=== PATIENT | female | born 1950 | race Caucasian/White ===

== ENCOUNTER 2018-01-02 09:30 | Outpatient (RCR) | payer MEDICARE, OTHER, SELFPAY ==
--- NOTE | 2017-12-05 09:30 | PTTR_ITS ---
DATE: December 05, 2017 SUBJECTIVE: Payton reports that she feels she has an increased awareness of her pelvic floor. She has been compliant with her HEP. She has been completing more isolation contractions for improved awareness than the cocontraction exercises for she feels that she loses the pelvic floor contraction when she engages the larger muscle groups. She notes that she still feels the pressure of the prolapse. She does note that it depends on her level of activity on how much the pressure is there. Is trying to be more aware of avoiding bearing down with squatting activity. OBJECTIVE: Therapeutic procedures ([id number]). * X HEP review: Emphasized focus on pelvic floor isolation with functional activities and her other PT exercises prescribed for her low back. * X Provided skilled instruction in proper exercise performance: with use of EMG biofeedback for neuromuscular education to the pelvic floor via internal vaginal sensor independently placed via patient. Good resting tone at 2.9 mV- 3.1 mV. Average contraction to 10 mV with average hold of 6 seconds. Completed 10 isolation contractions followed by cocontraction stabilization via hip adduction with ball squeeze with increased activation via EMG to 13 mV. Abduction with light resistance via red band with EMG at 10 mV or greater and bridging with EMG at 19 mV or greater. * X Provided skilled manual cues to facilitate proper muscle recruitment and/ or movement pattern: Emphasized importance of the compliancy with her HEP. Feel that her increased awareness is a plus to her prognosis. Will reassess in 4 weeks with continued progression of stabilization within tolerance. Will contact us in the meantime if she has any questions. Direct treatment time: 30 minutes Total treatment time: 30 minutes
--- NOTE | 2018-01-02 09:30 | PTTR_ITS ---
DATE: January 02, 2018 SUBJECTIVE: Payton reports that she has maintained her compliancy with her HEP however is not seeing any improvement in the level of pressure or heaviness due to the prolapse. She declines any pain. She is not limited in any activity because of it however questions if it will ever go away or improve to the point where she will not feel it. She also continues to core stabilization and proximal hip stability. She notes that she has had a difficult time in getting a regular exercise regimen due to her low back and occasional feeling that she has to bear down to complete. She has discontinued any of the exercises that she feels she is doing this. Declines any leakage. OBJECTIVE: Therapeutic procedures ([id number]). * X HEP review: Emphasized continued stabilization of the core musculature and proximal hip stabilizers in conjunction with her pelvic floor isolation. * X Provided skilled instruction in proper exercise performance: promoting use of EMG biofeedback with use of internal sensor independently placed via patient. Average resting tone 2.3 mV. Average contraction to 10 mV with average hold up to 8 seconds. Improved endurance however strength of contraction has remained the same as last reassessment 4 weeks ago. * X Provided skilled manual cues to facilitate proper muscle recruitment and/ or movement pattern: Promoting core engagement and activation of her pelvic floor throughout all functional tasks especially with lifting tasks. At this time no follow up is scheduled. She will continue with her HEP. She will contact our office with any questions or if needs to reappoint for further assessment. If no contact made over the course of the next month will be considered discharged from our care at this time. Patient is also in agreement with this plan. If further pressure develops or if pain arises recommended return to physician. Direct treatment time: 30 minutes Total treatment time: 30 minutes
== END 2018-01-03 23:59 | disposition home or self-care (01) ==
LOC: PT 09:30
PROVIDERS: PCP Family Medicine; Referring Provider Family Medicine; Visit Provider Family Medicine
DX: N81.2 Incomplete uterovaginal prolapse (principal)
CPT/HCPCS: 97110

== ENCOUNTER 2018-06-02 10:01 | Outpatient (CLI) | payer MEDICARE, SELFPAY ==
[2018-06-02 15:00] LABS: TSH (W/Ref FT4) 1.57 uIU/mL (0.358-3.74)
== END 2018-06-02 10:21 ==
PROVIDERS: PCP Family Medicine; Visit Provider Family Medicine
DX: G47.00 Insomnia, unspecified (principal); E03.9 Hypothyroidism, unspecified
CPT/HCPCS: 36415; 84443

== ENCOUNTER 2018-09-09 11:47 | Outpatient (CLI) | payer MEDICARE, SELFPAY ==
[2018-09-09 14:16] LABS: ALT 30 U/L (12-78); AST 20 U/L (15-37); Albumin 3.9 g/dL (3.4-5.0); Alkaline Phosphatase 75 U/L (46-116); Anion Gap 8.3 mmol/L (3-11); BUN 21 mg/dL (7-18); Bilirubin, Total 0.5 mg/dL (0.2-1.0); CO2 27.7 mmol/L (21.0-32.0); CREATININE 0.91 mg/dL (0.55-1.02); Chloride 105 mmol/L (98-107); Cholesterol 253 mg/dL (50-200); Glucose 98 mg/dL (70-100); HDL Cholesterol 95 mg/dL (40-60); LDL CHOLESTEROL 145 mg/dL (<100); Potassium 4.7 mmol/L (3.5-5.1); Sodium 141 mmol/L (136-145); Triglyceride 71 mg/dL (30-150)
== END 2018-09-09 12:07 ==
PROVIDERS: PCP Family Medicine; Visit Provider Family Medicine
DX: E78.00 Pure hypercholesterolemia, unspecified (principal)
CPT/HCPCS: 36415; 80053; 80061; 83721

== ENCOUNTER 2019-01-07 09:51 | Outpatient (CLI) | payer MEDICARE, SELFPAY ==
[2019-01-08 10:04] LABS: Alpha 1 Antitrypsin,Serum 77 mg/dL (90-200)
[2019-01-09 16:59] LABS: Alpha-1-Antitrypsin 89 mg/dL (100 - 190); Alpha-1-Antitrypsin Phenotype MZ bands
== END 2019-01-07 10:11 ==
PROVIDERS: PCP Family Medicine; Visit Provider Family Medicine
DX: R06.2 Wheezing (principal)
CPT/HCPCS: 36415; 82103; 82104

== ENCOUNTER 2019-09-22 20:59 | Outpatient (REF) | payer MEDICARE, SELFPAY ==
[2019-09-22 20:06] LABS: TSH (W/Ref FT4) 0.43 uIU/mL (0.36-3.74)
== END 2019-09-22 21:19 ==
LOC: LBN 20:59
PROVIDERS: PCP Family Medicine; Visit Provider Family Medicine
DX: E03.9 Hypothyroidism, unspecified (principal); Q89.2 Congenital malformations of other endocrine glands
CPT/HCPCS: 84443

== ENCOUNTER 2019-10-27 08:23 | Outpatient (CLI) | payer MEDICARE, SELFPAY ==
[2019-10-29 20:35] LABS: COVID-19 RT-PCR UVMMC Result Negative (Negative)
== END 2019-10-27 08:43 ==
PROVIDERS: PCP Family Medicine; Visit Provider Family Medicine
DX: Z03.818 Encounter for observation for suspected exposure to other biological agents ruled out (principal)
CPT/HCPCS: U0003

== ENCOUNTER 2019-10-30 04:02 | Outpatient (CLI) | payer MEDICARE, SELFPAY ==
--- NOTE | 2019-11-09 09:01 | W.PFT ---
Date of service: 10/30/19 Time of Service: 01:02 Pulmonary Function Test Result Interpretation Spirometry: Spirometry shows no evidence of obstructive airways disease, no bronchodilator response Lung Volumes: Lung volumes show no evidence of restriction Diffusion Capacity: Diffusion capacity is normal Airway Pressure: Airways resistance is normal Impression Normal pulmonary function study, clinical correlation recommended. When the study was compared to previous one from 09/10/2017, there is a slight improvement in FVC of 80 cc, FEV1 has remained stable. Clinical Correlation therefore is recommended.
== END 2019-10-30 04:22 ==
PROVIDERS: PCP Family Medicine; Visit Provider Internal Medicine
DX: E88.01 Alpha-1-antitrypsin deficiency (principal); R06.09 Other forms of dyspnea
CPT/HCPCS: 94060; 94726; 94729

== ENCOUNTER 2019-11-04 02:14 | Outpatient (CLI) | payer MEDICARE, SELFPAY ==
--- NOTE | 2019-11-04 14:45 | DI.MAMMO_ITS ---
EXAM: MG MAMMO SCREENING CLINICAL HISTORY: screening, Z12.39 TECHNIQUE: Bilateral full field digital CC and MLO mammographic images were obtained with 3D tomosyn thesis and utilizing computer aided detection (CAD). COMPARISON: Available for comparison. FINDINGS: Masses/Architectural Distortion: None seen. Microcalcifications: No suspicious pleomorphic-type are seen. Skin Thickening/Nipple Retraction: None. IMPRESSION: 1. No significant interval change with no specific features of malignancy noted. 2. Unless there is more urgent need, screening mammography is recommended, as per [place] [employer] guidelines. BI-RADS Category 1 - Negative Breast Density - Category B - Scattered areas of fibroglandular density A negative radiographic report should not delay biopsy if a dominant or clinically suspicious mass is present. Up to ten percent of cancers are not identified on mammography. A negative report may reinforce clinical impression. Adenosis and dense breasts may obscure an underlying neoplasm. False positive reports average 6 to 10%. Patient will receive a letter notifying them of these results.
== END 2019-11-04 02:34 ==
PROVIDERS: PCP Family Medicine; Visit Provider Family Medicine
DX: Z12.31 Encounter for screening mammogram for malignant neoplasm of breast (principal)
CPT/HCPCS: 77063; 77067

== ENCOUNTER 2020-09-20 03:19 | Outpatient (CLI) | payer MEDICARE, SELFPAY ==
[2020-09-20 11:45] LABS: ALT 24 U/L (14-59); AST 16 U/L (15-37); Albumin 3.8 g/dL (3.4-5.0); Alkaline Phosphatase 71 U/L (46-116); Anion Gap 10.6 mmol/L (3-11); BUN 19 mg/dL (7-18); Bilirubin, Total 0.5 mg/dL (0.2-1.0); CO2 26.4 mmol/L (21.0-32.0); CREATININE 0.9 mg/dL (0.55-1.02); Calcium 8.7 mg/dL (8.5-10.1); Calculated LDL 149 mg/dL (<100); Chloride 107 mmol/L (98-107); Cholesterol 267 mg/dL (<200); Glucose 93 mg/dL (74-106); HDL Cholesterol 104 mg/dL (40-60); Potassium 4.3 mmol/L (3.5-5.1); Sodium 144 mmol/L (136-145); TSH (W/Ref FT4) 1.12 uIU/mL (0.36-3.74); Total Protein 6.8 g/dL (6.4-8.2); Triglyceride 72 mg/dL (<150)
== END 2020-09-20 03:20 | disposition home or self-care (01) ==
PROVIDERS: PCP Family Medicine; Visit Provider Family Medicine
DX: E78.00 Pure hypercholesterolemia, unspecified (principal); E03.9 Hypothyroidism, unspecified
CPT/HCPCS: 36415; 80053; 80061; 84443

== ENCOUNTER 2021-03-17 10:44 | Outpatient (REF) | payer MEDICARE, SELFPAY ==
[2021-03-17 11:32] LABS: Abs Immature Grans 0.02 10^3/uL (0.0-0.06); Absolute Basophil Count 0.04 10^3/uL (0.0-0.2); Absolute Lymphocyte Count 1.16 10^3/uL (1.2-3.4); Absolute Monocyte Count 0.42 10^3/uL (0.1-0.8); Absolute Neutrophil Count 3.21 10^3/uL (1.2-6.7); Basophils % 0.8; HCT 42.5 % (36.0-46.0); Immature Grans % 0.4; MCH 29.9 pg (27.0-33.0); MCHC 32.9 % (32.0-36.0); MCV 90.8 fL (80-95); MPV 9.9 fL (8.0-11.0); Monocytes % 8.3; Neutrophils % 63.5; Nucleated RBC 0 %; Platelet Count 255 10^3/uL (130-400); RBC 4.68 10^6/uL (3.93-5.22); RDW 12.6 % (11.7-14.6); RDW-SD 42.1 fL; WBC 5.05 10^3/uL (4.4-10.8)
[2021-03-20 08:09] LABS: IgE 19 IU/mL (<158)
[2021-03-20 10:57] LABS: Alpha 1 Antitrypsin,Serum 91 mg/dL (90-200)
== END 2021-03-17 10:45 | disposition home or self-care (01) ==
LOC: NCHCN 10:44
PROVIDERS: PCP Family Medicine; Visit Provider Student in an Organized Health Care Education/Training Program
DX: E88.01 Alpha-1-antitrypsin deficiency (principal); J45.909 Unspecified asthma, uncomplicated
CPT/HCPCS: 82103; 82785; 85025

== ENCOUNTER 2021-05-31 00:49 | Outpatient (CLI) | payer MEDICARE, SELFPAY ==
--- NOTE | 2021-05-31 07:35 | DI.US_ITS ---
APPROVED REPORT EXAM: Comprehensive 2D, Doppler, and color-flow Echocardiogram Patient Location: Out-Patient Butt Maker: Evy Phillips RDCS (AE) Indications: SOB Other Information Study Quality: Good Conclusion Left Ventricle : The left ventricle is normal size. The left ventricular systolic function is normal. The left ventricular ejection fraction is within the normal range. There is normal left ventricular wall thickness. There is normal LV segmental wall motion. The left ventricular diastolic function is normal. LVEF is 60%. Right Ventricle : The right ventricle is normal size. The right ventricular systolic function is norm al. The RVSP is 25 mmHg. Aortic Valve : The aortic valve is normal in structure. Aortic valve is trileaflet. Mild aortic regur gitation. There is no aortic valvular stenosis. Mitral Valve : Mild mitral annular calcification. Mild to moderate mitral regurgitation. No evidence of mitral valve stenosis. Great Vessels : The aortic root is normal in size. The ascending aorta is mildly dilated. IVC is norm al in size and collapses >50% with inspiration. See remainder of stay for further details. Wall motion Left Ventricle The left ventricle is normal size. The left ventricular systolic function is normal. The left ventric ular ejection fraction is within the normal range. There is normal left ventricular wall thickness. T here is normal LV segmental wall motion. The left ventricular diastolic function is normal. There is no ventricular septal defect visualized. LVEF is 60%. Right Ventricle The right ventricle is normal size. The right ventricular systolic function is normal. The RVSP is 25 mmHg. Atria The left atrium size is normal. The right atrium size is normal. The interatrial septum is intact wit h no evidence for an atrial septal defect. Aortic Valve The aortic valve is normal in structure. Aortic valve is trileaflet. There is no aortic valvular sten osis. Mild aortic regurgitation. Mitral Valve Mild mitral annular calcification. No evidence of mitral valve stenosis. Mild to moderate mitral regu rgitation. Tricuspid Valve The tricuspid valve is normal in structure. There is no tricuspid valve stenosis. Trace tricuspid reg urgitation. Pulmonic Valve The pulmonary valve is normal in structure. There is no pulmonic valvular stenosis. There is no pulmo frannie valvular regurgitation. Great Vessels The aortic root is normal in size. The ascending aorta is mildly dilated. IVC is normal in size and c ollapses >50% with inspiration. Pericardium There is no pericardial effusion. 2D Dimensions IVSD d PLAX 0.77 cm F: 0.6-1.0 LV Vol A2C d MOD 94.5 mL LVPW d PLAX 0.81 cm F: 0.6 - 1.0 LV Vol A4C d MOD 83.8 mL LVID d PLAX 4.27 cm F: 3.8 - 5.2 LA vol/ BSA A2C s A-L 27.5 mL/m2 LVDs 2.85 cm F: 2.2 - 3.5 LA vol/ BSA A4C s A-L 20.5 mL/m2 Ao Root d 3.05 cm F: 2.7 - 3.3 LA Vol/ BSA Biplane s A-L 24.1 mL/m2 RA Area A4C 13.19 cm2 LA Area A4C s MOD 14.58 cm2 RA Vol/ BSA A4C s A-L 18.9 mL/m2 LA Area A2C s MOD 16.64 cm2 Ao Asc Diam d 3.35 cm F: 2.3 - 3.1 LV EF A4C MOD 61.4 % LV EF Teichholz 61.8 % LV EF A2C MOD 60.5 % LVEF (Carbone's) 61.14 % F: 54 - 74 LV EF Biplane MOD 61.1 % LV Volume 69.62 mL F: 46 - 106 SV 54.76 mL LV Volume Index 38.67 mL/m2 F: 29 - 61 SV Index 30.38 mL/m2 LV Vol Biplane MOD 89.6 mL FS 32.95 % M-Mode TAPSE 2.21 cm (M/F) >1.7 LV Diastology MV E' medial 0.098 (>0.07 m/s) E/A Ratio 0.8 LV E/e MED 6.70 (<14) MV E Vmax 0.66 (0.4-1.3 m/s) MV E' lateral 0.136 (>0.1 m/s) MV A Vmax 0.80 (0.4-1.3 m/s) LV E/e LAT 4.80 (<14) MV E/A Ratio 0.79 MV E/E' medial 6.71 MV E/E' lateral 4.83 Aortic Valve LVOT Area 3.14 cm2 AoV Area Vmax 2.48 cm2 LVOT Vmax 1.00 m/s AoV Area/ BSA (Vmax) 1.38 cm2/m2 LVOT Mean Aj. 0.61 m/s KAYLYNN Mean Aj. 2.37 cm2 LVOT Peak Grad 4.0 mmHg KAYLYNN Mean Aj. Index 1.31 cm2/m2 LVOT Mean Grad 1.8 mmHg AR DT 1753 msec LVOT VTI 0.201 m AR PHT 508 msec LVOT Diam s 2.00 cm AoV Vmax 1.27 m/s Velocity Ratio 0.78 AoV Mean Aj. 0.81 m/s AoV Peak Grad 6.4 mmHg LVOT SV 63.19 mL AoV Mean Grad 3.0 mmHg AoV VTI 0.234 m AoV Area VTI 2.70 cm2 AoV Area/ BSA (VTI) 1.50 cm/m2 Mitral Valve MV DT 272 (160-240 msec) MR Vmax 4.72 m/s MV PHT 79 msec MR VTI 1.576 m MV Area PHT 2.79 cm2 MR Peak Grad 89.0 mmHg MV VTI 0.213 m MR Mean Grad 58.3 mmHg MV Area VTI 2.97 (4.0-6.0 cm2) MR PISA Radius 0.43 cm MR EROA 0.08 cm2 MR Aliasing Velocity 0.35 m/s MR PISA 1.14 cm2 Pulmonary Valve PV Vmax 1.04 (0.5-1.5 m/s) RVOT Peak Gr. 1.87 mmHg PV Peak Grad 4.3 mmHg RVOT Mean Gr. 0.90 mmHg PV Mean Grad 2.0 mmHg RVOT VTI 0.131 m PV VTI 0.175 m RVOT Vmax 0.68 m/s Tricuspid Valve TR Peak Grad 22.0 mmHg TR Vmax 2.35 m/s RA Pressure 3.00 mmHg RVSP (TR) 25.0 mmHg
== END 2021-05-31 01:09 ==
PROVIDERS: PCP Family Medicine; Visit Provider Family Medicine
DX: R06.02 Shortness of breath (principal); I08.0 Rheumatic disorders of both mitral and aortic valves; I77.810 Thoracic aortic ectasia
CPT/HCPCS: 93306

== ENCOUNTER 2021-07-14 02:03 | Outpatient (CLI) | payer MEDICARE, SELFPAY ==
--- NOTE | 2021-07-14 07:30 | DI.DEXA_ITS ---
Exam(s) XR DEXA BONE DENSITY W/WO NIYA EXAM: XR DEXA BONE DENSITY W/WO NIYA CLINICAL HISTORY: osteoporosis,M81.0 TECHNIQUE: Routine DEXA evaluation of the lumbar spine, hip, or forearm. COMPARISON: Prior DEXA scan 2009 FINDINGS: Performed on a HoloCryoocyte unit. Lateral image: No compression fracture evident. Lumbar Spine total T-score: -0.8. Prior 2010 reading was -1.1 Hip total T-score:-0.5. Prior 2010 reading was -0.7. Independent reading at the level of the femoral neck yields at T-score of -1.4.This is osteopenia ran ge. Forearm total T-score: -0.9 IMPRESSION: Bone mineral density measures in the mild osteopenia range. Fracture risk is moderate. Note: Any spine fracture indicates 5x risk for subsequent spine fracture and 2x risk for subsequent h ip fracture. World Health Organization criteria for BMD interpretation classify patients: Normal...... T- Score at or above -1.0 Osteopenic... T- Score between -1.0 and -2.5 Osteoporosis... T-Score at or below -2.5
== END 2021-07-14 02:23 ==
PROVIDERS: PCP Family Medicine; Visit Provider Family Medicine
DX: M85.89 Other specified disorders of bone density and structure, multiple sites (principal); Z13.820 Encounter for screening for osteoporosis
CPT/HCPCS: 77080

== ENCOUNTER 2021-08-18 09:50 | Outpatient (CLI) | payer MEDICARE, SELFPAY ==
--- OUTSIDE RECORDS SUMMARY | 2021-08-18 10:00 | XMS_ITS ---
:1950 Author Care Team Providers Name Role Phone JACEK YUNI Primary Care Provider [phone] [facility] Primary Care Provider [phone] Allergies Code Code System Name Reaction Severity Status Onset NKDA ? Medications Name Status Start Date Stop Date ? ? albuterol sulfate 90 mcg/actuation breath activated powder inhal er Completed ? 02/12/2019 Inhale 2 puffs 4 times a day by inhalation route as needed. albuterol sulfate HFA 90 mcg/actuation Active ? Not available aerosol inhaler aloe vera Active ? Not available 1,000 ML daily PRN azithromycin 250 mg tablet Completed ? 02/12 TAKE 2 TABLETS (500 MG) BY ORAL ROUTE O NCE DAILY FOR 1 DAY THEN 1 TABLET (250 MG) BY ORAL ROUTE ONCE DAILY FOR 4 DAYS budesonide-formoterol HFA 80 mcg-4.5 mcg/actuation aerosol inhal er Active ? Not available Inhale 2 puffs twice a day by inhalation route. levothyroxine 75 mcg tablet Active ? Not available pantoprazole 40 mg tablet,delayed Completed ? 03/19/2019 release prednisone 20 mg tablet Completed ? 02/13/20 19 Take 1 tablet every day by oral route. Shingrix (PF) 50 mcg/0.5 mL Active ? Not available intramuscular suspension, kit Symbicort 160 mcg-4.5 mcg/actuation HFA aerosol inhaler Active ? Not available Inhale 2 puffs twice a day by inhalation route. Problems Name Status Onset Date Source ? Herpes Zoster Active 02/12/2019 ? Hypothyroidism Active 02/12/2019 ? Hypercholesterolemia Active 02/12/2019 ? 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 Insomnia Active 02/12/2019 ? Sensorineural Hearing Loss, Bilateral Active 02/12/2019 ? Gastroesophageal Reflux Disease Active 02/12/2019 ? Atrophy of Vagina Active 02/12/2019 ? Degeneration of Intervertebral Disc Active 02/12/2019 ? Neck Pain Active 02/12/2019 ? Osteopenia Active 02/12/2019 ? Congenital Diverticulosis Active 02/12/2019 ? Aberrant Thyroid Gland Active 02/12/2019 ? Dyspnea Active 02/12/2019 ? Wheezing Active 02/12/2019 ? Cough Active 02/12/2019 ? Ganglion Cyst of Left Knee Active 02/12/2019 ? Procedures None recorded. Results Lab Results None recorded. Past Encounters None recorded. Social History Tobacco Smoking Status Never Smoker Vaccine List Vaccine Type influenza, injectable, quadrivalent 03/17/2019 pneumococcal conjugate PCV 13 09/09/2017 pneumococcal polysaccharide PPV23 07/14/2013 Tdap 05/31/2011 Plan of Care Reminders Provider Appointments None ? ? recorded. Lab None ? ? recorded. Referral None ? ? recorded. Procedures None ? ? recorded. Surgeries None ? ? recorded. Imaging None ? ? recorded. Vitals 03/19/2019 12:30PM Office 30 Height Weight BMI Blood Pressure 162.56 cm 76.2 kg 28.8 kg/m2 118/64 mm[Hg] 02/12/2019 10:30AM New Patient 43 Height Weight BMI Blood Pressure 162.56 cm 75.4 kg 28.5 kg/m2 122/80 mm[Hg]
[2021-08-18 11:17] LABS: Anion Gap 9.8 mmol/L (3-11); BUN 17 mg/dL (7-18); CO2 26.2 mmol/L (21.0-32.0); Calcium 8.8 mg/dL (8.5-10.1); Chloride 106 mmol/L (98-107); Estimated GFR 54.35 (mL/min/1.73m2); Glucose 95 mg/dL (74-106); Sodium 142 mmol/L (136-145); TSH (W/Ref FT4) 0.52 uIU/mL (0.36-3.74); Vitamin B12 339 pg/mL (193-986)
== END 2021-08-18 09:51 | disposition home or self-care (01) ==
LOC: LBO 09:59
PROVIDERS: PCP Family Medicine; Visit Provider Family Medicine
DX: E03.9 Hypothyroidism, unspecified (principal); E88.01 Alpha-1-antitrypsin deficiency; K21.9 Gastro-esophageal reflux disease without esophagitis; Q89.2 Congenital malformations of other endocrine glands; U07.1 COVID-19
CPT/HCPCS: 36415; 80048; 82607; 84443

== ENCOUNTER → 2021-11-03 01:10 | Outpatient (CLI) | payer MEDICARE, SELFPAY ==
--- NOTE | 2021-11-03 08:00 | DI.RAD_ITS ---
Exam(s) XR LUMBAR SPINE COMPLETE EXAM: XR LUMBAR SPINE COMPLETE CLINICAL HISTORY: LOW BACK PAIN, M51.36. TECHNIQUE: 2D digital imaging was performed. COMPARISON: CR XR DEXA BONE DENSITY W/WO NIYA from 07/14/2021 FINDINGS: Five views, There is transitional lumbar anatomy with sacralization of the L5 segment. There is a rudimentary L5 -S1 disc space. The other disc spaces exhibit normal height and there is no listhesis. No pars defe cts. There are significant degenerative changes at L4-5 level. Moderate degenerative changes at L3- 4 level. Sacroiliac joints appear unremarkable. No scoliosis. No osseous lesions. IMPRESSION: No disc space narrowing although there is sacralization of the L5 segment. This puts additional stre ss upon the L4-5 disc space. Degenerative facet arthropathy at L4-5 level noted. No listhesis. DATA REPOSITORY: RADIATION DOSE DELIVERED:
--- NOTE | 2021-11-03 08:09 | DI.RAD_ITS ---
Exam(s) XR HIP PELVIS ADULT BL EXAM: XR HIP PELVIS ADULT BL CLINICAL HISTORY: BILAT HIP PAIN, M25.559. TECHNIQUE: 2D digital imaging was performed. COMPARISON: CR LUMBAR SPINE COMPLETE from 01/20/2016 FINDINGS: No evidence of pelvic nor hip fracture. Sacralized L5 segment noted. No obvious degenerative changes in the hips. Bone density normal. No osseous lesions. No evidence of avascular necrosis. IMPRESSION: No significant radiograph findings in the hips. DATA REPOSITORY: RADIATION DOSE DELIVERED:
== END ==
PROVIDERS: PCP Family Medicine; Visit Provider Family Medicine
DX: M47.816 Spondylosis without myelopathy or radiculopathy, lumbar region; M51.36 Other intervertebral disc degeneration, lumbar region; M25.551 Pain in right hip; M25.552 Pain in left hip; M43.27 Fusion of spine, lumbosacral region
CPT/HCPCS: 73521; 72110

== ENCOUNTER 2021-12-26 08:49 | Outpatient (CLI) | payer MEDICARE, SELFPAY | END 2021-12-26 08:50 | disposition home or self-care (01) | LOC: LOS 08:49 | PROVIDERS: PCP Family Medicine; Visit Provider Family Medicine | DX: E03.9 Hypothyroidism, unspecified (principal); E78.00 Pure hypercholesterolemia, unspecified | CPT/HCPCS: 36415; 84443 ==

== ENCOUNTER → 2022-01-18 01:42 | Outpatient (CLI) | payer MEDICARE, SELFPAY ==
--- NOTE | 2022-01-18 09:03 | DI.MAMMO_ITS ---
Exam(s) MAMMO SCREENING EXAM: MAMMO SCREENING CLINICAL HISTORY: screening,z12.39 TECHNIQUE: Bilateral full field digital CC and MLO mammographic images were obtained with 3D tomosyn thesis and utilizing computer aided detection (CAD). COMPARISON: Available for comparison. FINDINGS: Masses/Architectural Distortion: None seen. Microcalcifications: No suspicious pleomorphic-type are seen. Skin Thickening/Nipple Retraction: None. IMPRESSION: 1. No significant interval change with no specific features of malignancy noted. 2. Unless there is more urgent need, screening mammography is recommended, as per [employer] guidelines. BI-RADS Category 1 - Negative Breast Density - Category B - Scattered areas of fibroglandular density Breast density category C or D implies that the patient has dense breast tissue. Dense breast tissue is very common and is not abnormal but dense breast tissue can make it harder to find cancer on a ma mmogram. Also, dense breast tissue may increase their breast cancer risk. This information about the result of the mammogram report was provided to the patient to raise their awareness. Use this report when you speak with the patient about their risks for breast cancer, which includes their family hist ory. At that time, you may recommend for more screening tests (Ultrasound or MRI) as they might be us eful based on their risk. A negative radiographic report should not delay biopsy if a dominant or clinically suspicious mass is present. Up to ten percent of cancers are not identified on mammography. A negative report may reinforce clinical impression. Adenosis and dense breasts may obscure an underlying neoplasm. False positive reports average 6 to 10%. Patient will receive a letter notifying them of these results.
== END ==
PROVIDERS: PCP Family Medicine; Visit Provider Family Medicine
DX: Z12.31 Encounter for screening mammogram for malignant neoplasm of breast (principal)
CPT/HCPCS: 77063; 77067

== ENCOUNTER 2022-09-10 11:07 | Outpatient (REF) | payer MEDICARE, SELFPAY ==
[2022-09-10 12:12] LABS: Bilirubin Small (Negative); Blood Negative (Negative); Clarity Cloudy (Clear); Glucose Negative (Negative); Ketones Negative (Negative); Leukocyte Esterase Small (Negative); Nitrite Negative (Negative); Specific Gravity >= 1.030 (1.005-1.025); Urobilinogen 0.2 mg/dL (Up to 0.2); pH 5.5 (5-8)
[2022-09-10 12:23] LABS: Bacteria Many HPF (Negative); Crystals Moderate Amorphous HPF (Negative); Epithelial Cells Rare HPF (Negative); RBC 0-2 HPF (0-2)
[2022-09-10 12:24] LABS: C & S Indicated? Yes; Casts Negative LPF (Negative); Mucus Negative (Negative)
[2022-09-10 12:25] LABS: WBC 0-2 HPF (0-5)
== END 2022-09-10 11:08 | disposition home or self-care (01) ==
LOC: LBN 11:07
PROVIDERS: PCP Family Medicine; Visit Provider Physician Assistant
DX: R39.89 Other symptoms and signs involving the genitourinary system (principal); R82.998 Other abnormal findings in urine
CPT/HCPCS: 36415; 80053; 83690; 87077; 81003; 81015; 85025; 87086; 87186

== ENCOUNTER 2022-09-10 15:32 | Outpatient (CLI) | payer MEDICARE, SELFPAY ==
--- NOTE | 2022-09-10 11:00 | DI.US_ITS ---
Exam(s) US ABDOMEN LIMITED EXAM: US ABDOMEN LIMITED CLINICAL HISTORY: epigastric and RUQ pain,r10.13 TECHNIQUE: Ultrasound abdomen performed using standard protocol. COMPARISON: CT CHEST FOR PULMONARY EMBOLUS from 09/06/2017 FINDINGS: LIVER: Normal size and echogenicity. No focal liver lesions are seen.. GALLBLADDER: 1.4 centimeter stone lodged within the gallbladder neck. Additional 1.2 centimeter ston e also seen near the neck. Gallbladder wall thickening. Small amount of pericholecystic fluid. MUNOZ'S SIGN: Positive BILIARY SYSTEM: No intrahepatic or extrahepatic biliary ductal dilation. No common duct stones ident ified. KIDNEYS: Normal size. No evidence of renal calculi. No evidence of hydronephrosis. No renal mass or cyst identified. PANCREAS: Normal where visualized. ABDOMINAL AORTA AND IVC: Visualized portions normal caliber. ASCITES: None seen. IMPRESSION: Findings consistent with acute cholecystitis. A stone is lodged in the gallbladder neck. Findings discussed with Yesica Gamboa, referring provider. DATA REPOSITORY:
== END 2022-09-10 15:52 ==
LOC: DI 15:43
PROVIDERS: PCP Family Medicine; Visit Provider Physician Assistant
DX: R10.13 Epigastric pain (principal); K81.0 Acute cholecystitis
CPT/HCPCS: 36415; 80053; 83690; 99203; 76705; 85025

== ENCOUNTER 2022-09-10 15:48 | Outpatient (CLI) | payer MEDICARE, SELFPAY ==
[2022-09-10 15:52] LABS: Abs Immature Grans 0.05 10^3/uL (0.0-0.06); Absolute Basophil Count 0.03 10^3/uL (0.0-0.2); Absolute Eosinophil Count 0.04 10^3/uL (0.0-0.7); Absolute Lymphocyte Count 1.49 10^3/uL (1.2-3.4); Absolute Monocyte Count 0.51 10^3/uL (0.1-0.8); Basophils % 0.2; Eosinophils % 0.3; HCT 43.2 % (36.0-46.0); HGB 14.5 g/dL (11.2-15.7); Immature Grans % 0.4; Lymphocytes % 11.4; MCH 29.9 pg (27.0-33.0); MCHC 33.6 % (32.0-36.0); MCV 89 fL (80-95); MPV 8.9 fL (8.0-11.0); Monocytes % 3.9; Neutrophils % 83.8; Platelet Count 323 10^3/uL (130-400); RBC 4.85 10^6/uL (3.93-5.22); RDW 12.1 % (11.7-14.6); RDW-SD 39.9 fL; WBC 13.03 10^3/uL (4.4-10.8)
[2022-09-10 15:54] LABS: Absolute Neutrophil Count 10.92 10^3/uL (1.2-6.7)
[2022-09-10 16:06] LABS: ALT 52 U/L (14-59); AST 49 U/L (15-37); Albumin 3.8 g/dL (3.4-5.0); Alkaline Phosphatase 122 U/L (46-116); Anion Gap 8.9 mmol/L (3-11); BUN 14 mg/dL (7-18); Bilirubin, Total 0.8 mg/dL (0.2-1.0); CO2 27.1 mmol/L (21.0-32.0); CREATININE 0.9 mg/dL (0.55-1.02); Calcium 9.4 mg/dL (8.5-10.1); Chloride 105 mmol/L (98-107); Estimated GFR 67.08 (mL/min/1.73m2); Glucose 127 mg/dL (74-106); Lipase 23 U/L (16-77); Sodium 141 mmol/L (136-145); Total Protein 7.9 g/dL (6.4-8.2)
== END 2022-09-10 15:49 | disposition home or self-care (01) ==
LOC: LBO 15:49
PROVIDERS: PCP Family Medicine; Visit Provider Physician Assistant
DX: R10.13 Epigastric pain (principal); K80.50 Calculus of bile duct without cholangitis or cholecystitis without obstruction
CPT/HCPCS: 36415; 80053; 83690; 99203; 85025

== ENCOUNTER → 2022-09-12 09:20 | Outpatient (BNVA) | payer MEDICARE, SELFPAY | PROVIDERS: PCP Family Medicine; Referring Provider Family Medicine; Visit Provider Surgery | DX: K50.80 Crohn's disease of both small and large intestine without complications (principal) | CPT/HCPCS: 36415; 99213 ==

== ENCOUNTER 2022-09-12 09:28 | Outpatient (REF) | payer MEDICARE, SELFPAY ==
[2022-09-12 09:51] LABS: Abs Immature Grans 0.04 10^3/uL (0.0-0.06); Absolute Basophil Count 0.05 10^3/uL (0.0-0.2); Absolute Eosinophil Count 0.37 10^3/uL (0.0-0.7); Absolute Lymphocyte Count 1.38 10^3/uL (1.2-3.4); Absolute Monocyte Count 0.57 10^3/uL (0.1-0.8); Absolute Neutrophil Count 8.83 10^3/uL (1.2-6.7); Basophils % 0.4; Eosinophils % 3.3; HGB 13.2 g/dL (11.2-15.7); Immature Grans % 0.4; Lymphocytes % 12.3; MCHC 33.8 % (32.0-36.0); MCV 89 fL (80-95); MPV 9.2 fL (8.0-11.0); Monocytes % 5.1; Neutrophils % 78.5; Platelet Count 299 10^3/uL (130-400); RDW 12.2 % (11.7-14.6); WBC 11.25 10^3/uL (4.4-10.8)
[2022-09-12 10:11] LABS: ALT 53 U/L (14-59); AST 38 U/L (15-37); Albumin 3.4 g/dL (3.4-5.0); Alkaline Phosphatase 120 U/L (46-116); Anion Gap 7.2 mmol/L (3-11); BUN 13 mg/dL (7-18); Bilirubin, Total 0.8 mg/dL (0.2-1.0); CO2 25.8 mmol/L (21.0-32.0); CREATININE 0.9 mg/dL (0.55-1.02); Calcium 9.1 mg/dL (8.5-10.1); Chloride 104 mmol/L (98-107); Estimated GFR 67.08 (mL/min/1.73m2); Glucose 116 mg/dL (74-106); Potassium 3.7 mmol/L (3.5-5.1); Sodium 137 mmol/L (136-145); Total Protein 7.5 g/dL (6.4-8.2)
== END 2022-09-12 09:29 | disposition home or self-care (01) ==
LOC: LBN 09:28
PROVIDERS: Surgery; PCP Family Medicine; Visit Provider Surgery
DX: K80.50 Calculus of bile duct without cholangitis or cholecystitis without obstruction (principal); E03.9 Hypothyroidism, unspecified
CPT/HCPCS: 80053; 85025

== ENCOUNTER 2022-09-19 08:04 | Day surgery (SDC) | payer MEDICARE, SELFPAY ==
[2022-09-19] VITALS (13 sets, daily range): BP systolic 83–134; BP diastolic 37–82; PULSE 64–94; RESP 14–21; TEMP 36.2–36.6; O2SAT 90–97; BMI 27.6
--- NOTE | 2022-09-19 06:36 | PGE_ITS ---
Date of Service Date of service: 09/19/22 Time of Service: 08:45 Assessment and Plan Assessment and plan (1) Biliary colic: Status: Acute Assessment and plan: Payton is here today in same-day surgery to have a laparoscopic cholecystectomy. The patient was seen in same-day surgery. We again reviewed the risks, benefits, complications. Complications include but are not limited to bleeding, infection, injury to stomach, small bowel and large bowel, injury to the pancreas, injury to the common bile duct necessitating drainage and referral to tertiary center for repair, bile leak, adverse reactions to the medications, complications of intubation including a sore throat or injury to the uvula, [place], stroke and even . Questions were entertained and answered to her satisfaction and she wished to proceed. No guarantees were given or implied. Neither Payton or her had any further questions. She seemed to understand the risks and complications of the procedure and wished to proceed. Subjective Subjective Interval history since last seen: Patient is a 72-year-old female who is here today for a laparoscopic cholecystectomy. Payton was seen last week after having right upper quadrant pain which was quite severe. She was noted to have some fluid around her gallbladder a mild while to count and stones in the neck of the gallbladder. Her symptoms then resolved. She did not want to have emergent surgery as it was her anniversary. She has done well over the last week. She says she had a couple of episodes where she had some discomfort but it only lasted like 15-20 minutes. No fevers, no chills, no vomiting, no diarrhea and no nausea. Exam Const General: comfortable and no acute distress Nutritional Appearance: average body habitus Orientation: alert and oriented x3 [facility] Head: normocephalic and atraumatic Resp Effort & Inspection: normal respiratory effort Time Spent with Patient Time Spent with Patient: <25 minutes Time was spent: counseling the patient
--- NOTE | 2022-09-19 06:36 | ANES.PREOP_ITS ---
General Info Date of Service Date Performed: 09/19/22 Height: 5 ft 4 in Weight: 73 kg Body Mass Index (BMI): 27.6 Surgical Procedure: Operation Date: 09/19/22 09:25 Proposed Procedure Side Surgeon p Cholecystectomy Laparoscopic Suzette Louise MD Meds Allergies and Home Medications Allergies Allergy/AdvReac Type Severity Reaction Status Date / Time No Known Drug Allergies Allergy Verified 09/19/22 08:28 Home Medication Medication Instructions Recorded Aloe Vera 1 oz PO DAILY PRN 07/14/13 pantoprazole 40 mg tablet,delayed 40 mg PO DAILY PRN GERD #90 07/18/21 release (Protonix) tab-caps Symbicort 160 mcg-4.5 2 puff inhalation BID #30.6 grams 06/12/22 mcg/actuation HFA aerosol inhaler (budesonide-formoterol) albuterol sulfate 90 mcg/actuation 2 puff inhalation QID PRN 06/12/22 aerosol inhaler (Proventil HFA) bronchospasm #8.5 grams levothyroxine 75 mcg tablet 75 mcg PO DAILY #90 tab-caps 06/12/22 ondansetron HCl 4 mg tablet 4 mg PO Q8H PRN nausea and 09/10/22 vomiting #10 tabs sucralfate 1 gram tablet (Carafate) 1 g PO TID #21 tabs 09/10/22 amoxicillin 500 mg tablet 500 mg PO QID #20 tabs 09/13/22 Current Visit Medications: Current Medications Generic Name Dose Route Start Last Admin Trade Name Freq PRN Reason Stop Dose Admin Ringer's Solution 1,000 mls @ 80 mls/hr 09/19/22 06:00 IV 10/18/22 23:59 INFUSION PHILIP IV Miscellaneous Supplies 1 each 09/19/22 06:00 Iv Access IV 10/18/22 23:59 DIRECTED PHILIP Sodium Chloride 0 ml 09/19/22 06:00 Normal Saline Flush 10 Ml Syr IV 10/18/22 23:59 PRN PRN Sodium Chloride 0 ml 09/19/22 06:00 Normal Saline 10 Ml Vial IJ 10/18/22 23:59 DIRECTED PRN Sterile Water 0 ml 09/19/22 06:00 Water,Injection,Sterile 10 Ml Vial IJ 10/18/22 23:59 DIRECTED PRN PFSH Active Problems Active Problems: Problem Status Onset Code Aberrant thyroid gland 07/25/15 Q89.2 Cough 04/23/17 R05 Cyst of left knee joint 11/01/16 M25.862 DDD (degenerative disc disease), lumbar 06/25/16 M51.36 Disorder of patellofemoral joint M22.2X9 Diverticulosis of colon without diverticulitis K57.30 Gastroesophageal reflux disease 07/08/12 K21.9 Hypercholesterolemia E78.00 Hypothyroidism 07/08/12 E03.9 Insomnia 07/09/12 G47.00 Neck pain 08/03/04 M54.2 Osteopenia 06/05/03 M85.80 Sensorineural hearing loss, bilateral 09/20/14 H90.3 Vaginal vault prolapse 10/29/17 N81.9 Wheezing Polyp of colon 09/19/12 K63.5 Asthma J45.909 Laceration Mqkrv-1-rfwcpjafjft deficiency E88.01 Osteoporosis M81.0 COVID U07.1 Hip pain M25.559 Prolapse of female pelvic organs N81.9 Pessary maintenance Z46.89 Biliary colic K80.50 Medical History Medical History (Updated 09/18/22 @ 11:39 by Cleve Woodson) Abnormal findings on diagnostic imaging of breast (08/15/12) Peripheral neuralgia Shingles (10/30/17) RIGHT SIDE OF FACE Vaginal pessary in situ Surgical History Surgical History section X 2 Colonoscopy - IV Sedation (09/19/12) DR. Mena GAR; 1 HYPERPLASTIC POLYP AND DIVERTICULA History of section History of esophagogastroduodenoscopy PROCEDURES Colonoscopy 2001 showing diverticulitis, EGD 1993 showing reflux disease, barium enema showing diverticulosis Tobacco Smoking/Tobacco Use Status: Never Passive smoking exposure: Yes Second hand exposure: Yes Alcohol Alcohol Intake: current Alcohol intake frequency: a few times a month Alcohol type: wine Substance Use Substance use: Never Substance use type: does not use Vital Signs and Lab Results Vital Signs Most Recent Vital Signs in EMR: Temp Pulse Resp BP Pulse Ox 36.5 C 94 H 20 122/73 96 09/19/22 08:03 09/19/22 08:03 09/19/22 08:03 09/19/22 08:03 09/19/22 08:03 Lab Results Blood Type / Crossmatch: No Data to Display Complete Blood Count: White Blood Count 11.25 10^3/uL (4.4-10.8) H 09/12/22 09:30 Red Blood Count 4.40 10^6/uL (3.93-5.22) 09/12/22 09:30 Hemoglobin 13.2 g/dL (11.2-15.7) 09/12/22 09:30 Hematocrit 39.0 % (36.0-46.0) 09/12/22 09:30 Platelet Count 299 10^3/uL (130-400) 09/12/22 09:30 Complete Metabolic Panel: Sodium 137 mmol/L (136-145) 09/12/22 09:30 Potassium 3.7 mmol/L (3.5-5.1) 09/12/22 09:30 Chloride 104 mmol/L (98-107) 09/12/22 09:30 Carbon Dioxide 25.8 mmol/L (21.0-32.0) 09/12/22 09:30 BUN 13 mg/dL (7-18) 09/12/22 09:30 Creatinine 0.9 mg/dL (0.55-1.02) 09/12/22 09:30 Est GFR (CKD-EPI 2020) 67.08 (mL/min/1.73m2) 09/12/22 09:30 Calcium 9.1 mg/dL (8.5-10.1) 09/12/22 09:30 Albumin 3.4 g/dL (3.4-5.0) 09/12/22 09:30 Glucose 116 mg/dL (74-106) H 09/12/22 09:30 Liver Function Panel: Alanine Aminotransferase (ALT/SGPT) 53 U/L (14-59) 09/12/22 09: 30 Aspartate Amino Transf (AST/SGOT) 38 U/L (15-37) H 09/12/22 09: 30 Coagulation Panel: No Data to Display Cardiac Panel: No Data to Display Arterial Blood Gas: No Data to Display Venous Blood Gas: No Data to Display Pancreas Panel: Lipase 23 U/L (16-77) 09/10/22 15:45 Thyroid Panel: No Data to Display Infectious Disease: No Data to Display Blood Cultures: No Data to Display Toxicology Panel: No Data to Display Imaging and Studies Imaging and Studies Study information below may be from another EMR and interpreted by another provider. Please see original notes in EMR for more complete details. Echocardiogram Summary: 05/27: LVEF 60%, RVfxn normal, mild mod MR, Pulmonary Function Summary: 11/22: normal study. Anesthesia Assessment and Plan Anesthesia History Personal History: No History of Anesthesia Complications Family History: No Family History of Anesthesia Complications Exercise Tolerance Exercise Tolerance: Metabolic Equivalents>4 Cardiac & Pulmonary Exam Cardiac Exam: Normal S1/S2 Heart Sounds Pulmonary Exam: Clear Bilateral Breath Sounds Implantable Cardiac Device Does patient have a Pacemaker or an ICD?: No Airway Exam Known Difficult Airway: No Mallampati Class: 2 Mouth Opening: Normal (> 3cm) Thyromental Distance: Greater than 3 cm Neck Range of Motion: Full ROM Neck Circumference: Normal Teeth Condition: Normal Dentition ASA Classification ASA Score: ASA 2 Emergency Case?: No NPO Status NPO Status: NPO Clears >2 hours, Solids >8 hours Anesthesia Plan Resuscitation Status: Full Code Anesthesia Technique: General Anesthesia Airway Planned: Endotracheal Tube Monitors Used: Standard Monitors Preoperative Comments:: 72 yo female with biliary colic for lap payal. Sig PMHx: asthma (Symbicort, albuterol, has not used prednisone in years), alpha 1 antitrypsin def, hypothyroid (on replacement), GERD (pantoprazole, well controlled), never smoker, occ EtOH.
--- NOTE | 2022-09-19 06:37 | ROE_ITS ---
Date of service: 09/19/22 Time of Service: 10:41 Operative Note Operative Note DATE OF PROCEDURE: 09/19/22 PRE-OP DIAGNOSIS: Biliary colic POST-OP DIAGNOSIS: other (acute on chronic cholecystitis) PROCEDURE: Laparoscoopic Cholecystectomy SURGEON: Suzette Loiuse CABLE TELEVISION PROGRAM DIRECTOR: Julio Cesar Menon ANESTHESIA TYPE: Local By Surgeon and General:No Airway Refer to Anesthesia Record ESTIMATED BLOOD LOSS: 50 PATHOLOGY: other (GAllbladder and stones) COMPLICATIONS: None Patient was transported to: PACU Patient's condition: stable Indications: Payton is here today in same-day surgery to have a laparoscopic cholecystectomy.? The patient was seen in same-day surgery.? We again reviewed the risks, benefits, complications.? Complications include but are not limited to bleeding, infection, injury to stomach, small bowel and large bowel, injury to the pancreas, injury to the common bile duct necessitating drainage and referral to tertiary center for repair, bile leak, adverse reactions to the medications, complications of intubation including a sore throat or injury to the uvula, RI, stroke and even .? Questions were entertained and answered to her satisfaction and she wished to proceed.? No guarantees were given or implied. Findings: thickened Gallbladder wall Multiple cholesterol stones Procedure Description: After informed consent was obtained the patient was brought to the operating room, placed in a supine position and monitors were applied. SCDs were applied to her lower extremities and she was placed under general anesthesia and intubated without difficulty. Her abdomen was then prepped and draped in a gera rile fashion using ChloraPrep. At this point a timeout was done and the patient's name, date of , procedure type, allergies to medications, metal in her body, antibiotic and DVT prophylaxis, and fire risk was assessed. Next 0.25% Bupivocaine was injected just above the umbilicus into the dermis and subcutaneous tissue. A 5 mm incision was made with an 11 blade. The skin next to the incision was grasped with penetrating towel clamps and while pulling up on the skin a 5 mm port was placed under direct visualization and without difficulty. The abdomen was insuflated and then 3 more ports were placed. A 12 mm port was placed in the subxiphoid area and two 5 mm ports were placed in the right upper quadrant. The liver was inspected and looked normal. The patient's bed was then turned to the left and her head was brought up. The gallbladder was grasped at the body. The wall was very thick which made it difficult to grasp. Using a Laparoscopic needle 10 cc of thick bile was removed from the Gallbladder. This allowed me to grasp the Gallblader a bit easier and pushed towards the right shoulder.There was omentum and stomach adhered to the Gallbladder. The omentum and stomach were gently swept away from the Gallbladder wall using a brandon dissector. The neck was grasped and pulled towards the right flank and down allowing me to visualize the lymph node. Using a [place] dissector with cautery the lymph node was gently dissected away from the tissues and the fatty tissue was also dissected away. The cystic duct was identified it was normal in size. The duct was dissected 360 degrees using the [place] dissector in order for me to visualize its entrance into the gallbladder. Liver was noted behind it. There were no other structures right behind. Critical view was achieved. 3 clips were placed one proximal and 2 distal and the cystic duct was cut. The cystic artery was then identified and dissected 360 degrees. It was located just medial to the cystic duct. It was visualized going into the gallbladder. Once dissected 3 more clips were placed one proximal and 2 distal and the artery was cut. Using the hook dissector the gallbladder was then disse cted away from the liver bed and placed into an Endo Catch bag and pulled through the 12 mm port site. The dissection off the liver was difficult as there was no plane between the Gallbladder wall and liver. Unfortunately I ended up getting into the Gallbladder and spilling some bile and some stones. The stones were removed and the bile was suctioned out. The 12 mm port was placed back into the abdomen under direct visualization. The liver bed was inspected, and there was some bleeding. A piece of surgicel was applied to the liver bed. A raytech was placed into the abdomen and over the surgicell. Gentle pressure was applied to the raytech with a blunt instrument. After 60 seconds the surgicel and raytech were removed from the abdoemn. There was no more bleeding noted. The abdomen was then irrigated with 2 liters of normal saline until the effluent was clear. Once all the fluid was suctioned out, the 12 mm and the 2 right upper quadrant ports were removed under direct visualization and no bleeding was noted from the fascia. The abdomen was deflated completely and lastly the umbilical port was removed. The skin was cleaned. The 12 mm incision site fascia was closed with 0- vicryl. The dermis of all 4 incisions were closed with 4-0 Vicryl. The skin was dried and skin affix was applied over the closed incisions. Needle, instrument and sponge counts were correct at the end of the case. At this point the patient was woken up, extubated and taken back to recovery in stable condition. There were no immediate complications.
--- NOTE | 2022-09-19 06:39 | PDOC.DSDIS_ITS ---
Date of service: 09/19/22 Time of Service: 12:53 Discharge Plan Disposition Patient Disposition: Home Condition: Stable Discharge Details Reason For Visit: biliary colic Attending Provider: Suzette Louise Primary Care Provider: Dora Guevara Home Meds and New Rx's Prescriptions: New amoxicillin-pot clavulanate [Augmentin] 500-125 mg tablet 1 tab PO BID Qty: 20 0RF Continued albuterol sulfate [Proventil HFA] 90 mcg/actuation HFA aerosol inhaler 2 puff IH QID PRN (Reason: bronchospasm) Qty: 8.5 4RF levothyroxine 75 mcg tablet 75 mcg PO DAILY Qty: 90 12RF budesonide-formoterol [Symbicort] 160-4.5 mcg/actuation HFA aerosol inhaler 2 puff inhalation BID Qty: 30.6 4RF ondansetron HCl 4 mg tablet 4 mg PO Q8H PRN (Reason: nausea and vomiting) Qty: 10 0RF sucralfate [Carafate] 1 gram tablet 1 g PO TID Qty: 21 0RF ALOE VERA 1,000 ML liquid 1 oz PO DAILY PRN Patient Comments: Takes PRN for acid reflux pantoprazole [Protonix] 40 mg tablet,delayed release (DR/EC) 40 mg PO DAILY PRN (Reason: GERD) Qty: 90 5RF Discontinued amoxicillin 500 mg tablet 500 mg PO QID Qty: 20 0RF Discharge Instructions Instructions: Low Fat Diet (DC), Laparoscopic Cholecystectomy (DC) Additional Instructions: Activity at Home after surgery: 1. Make sure you walk outside at least 4 times per day 2. You should be able to climb a flight of stairs 3. No driving while in pain or taking pain medications 4. No strenuous activity or heavy lifting for 2 weeks (laparoscopic surgery) Diet, Nutrition, & wound healin. Avoid alcohol until after you are recovered from your surgery 2. Make sure to eat plenty of lean protein (meat, fish, eggs, cottage cheese, beans) 3. Eat a variety of fruits and vegetables. Eat plenty of high fiber foods to avoid constipation. 4. Drink plenty of liquids to stay hydrated and avoid constipation Pain Medications: 1. Tylenol 650mg every 6 hours as needed and Ibuprofen 600 mg every 6 hours as needed. You may alternate between the 2 medications every 3 hours 2. If a narcotic has been prescribed take as directed only for breakthr ough pain For Constipation: 1. Take Milk of Magnesia or MiraLax as needed for constipation Other: 1. You may shower daily. Do not scrub the incisions 2. Do not soak the incisions for 1 week 3. You may alternate ice and heat as needed for pain and swelling Wound Care: 1. Keep the incisions clean and dry Please call our office if you develop: 1. Fevers >101.5 2. Nausea or Vomiting 3. Worsening pain 4. Redness and thick discharge from the wounds If after hours please call the Hospital at and ask to speak to the on-call surgeon Referrals: Suzette Louise MD [ [facility] STAFF PHYSICIAN] - 10/02/22 11:30 am Activity:: as above Shower/Bathe:: 24 hours Diet:: low fat Discharge Orders Discharge Orders: Discharge Order (Routine); Ordered 09/19/22 Ordered By: Suzette Louise DS: Diagnosis Discharge Diagnosis (1) Biliary colic: Status: Acute Asessment and Plan: The patient is doing well post-op from their Laparoscopic Colecystectomy surgery.? Patient did have some nausea in PACU. The nausea has now subsided. They are tolerating liquids and a snack. The pt is not having any chest pain or SOB.? Their pain is adequately controlled. They have been able to urinate.? ?HEENT:? no eye pain/drainage/redness/swelling. Mild sore throat ?Cardio- NSR, no chest pain, BP stable- see VS record ?Pulm: no sob or productive cough. No hemoptysis ?Incision- dressing is c/d/i w/ no excessive bleeding or drainage ABDO: soft, ND, appropriately tender to palpation around the incisions ?I discussed with the patient the findings at the time of surgery and the patient?s progress. ?We reviewed expectations at home; what the patient could expect for recovery time, and in the post-operative period.? We discussed the importance of walking to avoid blood clots and pneumonia.? We discussed and reviewed the patient's post-operative wound care and dressing needs.?? We reviewed their [place] pain management plan, Rx called to the pharmacy of their choice.? We reviewed activity and limitations-see discharge instructions. We reviewed warning signs, and when to seek medical attention- see d/c instructions.?? Patient was given a postoperative follow-up appointment. Patient verbalized understanding of their postoperative instructions, how do to take care of themselves and their incision, and the pain management plan. Please see discharge instructions.?
[2022-09-19] MEDS: Lactated Ringers 1,000 ML 80 ML IV (08:35)
[2022-09-19] MEDS: ceFAZolin 2 GM/50 ML BAG IVPB (09:24)
--- NOTE | 2022-09-19 10:10 | GB_PTH ---
PATIENT: Payton Lisa LOC: [facility] U#:[id number] AGE/SX: 72/F ROOM: RE09/19/[address]: Suzette Louise MD : 1950 BED: DIS: 09/19/2022 SPEC #: [id number] RECD: 09/19/22 13:03 STATUS: CE REBárbara #: [id number] MADELYN: 09/19/22 10:[address]: Suzette Louise DEPT: Surgical Specimen RECD BY: Yaneth Pedroza ENTERED: 09/19/22 13:04 SP TYPE: GB OTHR DR: Dora Guevara MD, DC Tissues: 1 - GALLBLADDER Procedures: GROSS AND MICRO LEVEL 3 Comments: [id number]
[2022-09-19] MEDS: Bupivacaine 0.25% Pres-Free 30 ML VIAL (10:31)
--- NOTE | 2022-09-19 11:22 | W.ANESPOSTOP ---
Postoperative Evaluation Date, Time and Location Date Performed: 09/19/22 Time Performed: 11:22 Patient Location: PACU Vital Signs Most Recent Imported Vital Signs: Most Recent Vital Signs Temp Pulse Resp BP Pulse Ox 36.5 C 67 21 111/59 L 97 09/19/22 10:55 09/19/22 11:10 09/19/22 11:10 09/19/22 11:10 09/19/22 11:10 Pain Score Most Recent Pain Score: Most Recent Pain Score Pain Level 0 09/19/22 11:10 Assessment Mental Status: Awake (Alert & Oriented to Patient Baseline) Airway and Respiratory Function: Patent airway with normal (patient baseline) respiratory exam Cardiovascular Function: Hemodynamically Stable Hydration Status: Adequately Hydrated Nausea & Vomiting: Active Nausea or Vomiting Present Nausea and Vomiting Management: Other (slight nausea, drop ordered. ) Pain: Pain is tolerable per patient Peripheral Nerve Block: Patient did not receive a nerve block
[2022-09-19] MEDS: Droperidol 5 MG/2 ML VIAL 0.625 MG IVP ×2 (11:27→11:42)
== END 2022-09-19 13:35 | disposition home or self-care (01) ==
PROVIDERS: PCP Family Medicine; Visit Provider Surgery
PROC: 0FT44ZZ Resection of Gallbladder, Percutaneous Endoscopic Approach (ICD-10-PCS; CPT 47562; principal; 2022-09-19 09:15)
DX: K81.2 Acute cholecystitis with chronic cholecystitis (principal); E88.01 Alpha-1-antitrypsin deficiency; K21.9 Gastro-esophageal reflux disease without esophagitis; E78.00 Pure hypercholesterolemia, unspecified; E03.9 Hypothyroidism, unspecified
CPT/HCPCS: 47562; 88304; J0690; J1100; J1790; J1885; J2405; J2704; J3475

== ENCOUNTER → 2022-10-02 11:12 | Outpatient (BNVA) | payer MEDICARE, SELFPAY | PROVIDERS: PCP Family Medicine; Referring Provider Family Medicine; Visit Provider Surgery | DX: Z48.815 Encounter for surgical aftercare following surgery on the digestive system (principal) ==

== ENCOUNTER 2022-10-31 12:13 | Outpatient (CLI) | payer MEDICARE, SELFPAY ==
--- NOTE | 2022-10-31 12:13 | DI.RAD_ITS ---
Exam(s) XR KNEE LT 3V AP,LAT,NISH EXAM: XR KNEE LT 3V AP,LAT,NISH CLINICAL HISTORY: left knee pain, M25.562. TECHNIQUE: 2D digital imaging was performed of the left knee. Three images were obtained. AP, late ral and PA tunnel views were obtained. COMPARISON: CR LEFT KNEE 4+ VIEWS from 07/19/2014 FINDINGS: BONES: No acute fracture is present. No bony destructive lesion is seen. JOINTS: The knee is normally aligned. There is a moderate joint effusion. Tricompartment degenerativ e changes are present with joint space narrowing and marginal osteophytes. SOFT TISSUE: Normal. IMPRESSION: Osteoarthritis of the left knee. DATA REPOSITORY: RADIATION DOSE DELIVERED:
== END 2022-10-31 12:33 ==
LOC: DI 12:13
PROVIDERS: PCP Family Medicine; Visit Provider Family Medicine
DX: M17.12 Unilateral primary osteoarthritis, left knee (principal)
CPT/HCPCS: 73562

== ENCOUNTER 2023-01-30 03:13 | Outpatient (CLI) | payer MEDICARE, SELFPAY ==
[2023-01-30 15:04] LABS: ALT 32 U/L (14-59); AST 20 U/L (15-37); Albumin 3.8 g/dL (3.4-5.0); Alkaline Phosphatase 84 U/L (46-116); Anion Gap 8.1 mmol/L (3-11); BUN 22 mg/dL (7-18); Bilirubin, Total 0.4 mg/dL (0.2-1.0); CO2 26.9 mmol/L (21.0-32.0); CREATININE 0.9 mg/dL (0.55-1.02); Calcium 9.2 mg/dL (8.5-10.1); Chloride 104 mmol/L (98-107); Estimated GFR 67.08 (mL/min/1.73m2); Glucose 95 mg/dL (74-106); Potassium 4.2 mmol/L (3.5-5.1); Sodium 139 mmol/L (136-145); TSH (W/Ref FT4) 0.68 uIU/mL (0.36-3.74); Total Protein 7.4 g/dL (6.4-8.2)
== END 2023-01-30 03:14 | disposition home or self-care (01) ==
LOC: LBO 03:13
PROVIDERS: PCP Family Medicine; Visit Provider Family Medicine
DX: E03.9 Hypothyroidism, unspecified (principal); E78.00 Pure hypercholesterolemia, unspecified; K21.9 Gastro-esophageal reflux disease without esophagitis
CPT/HCPCS: 36415; 80053; 84443

== ENCOUNTER → 2023-03-05 01:24 | Outpatient (CLI) | payer MEDICARE, SELFPAY ==
--- NOTE | 2023-03-05 08:45 | DI.MRI_ITS ---
Exam(s) MR LOWER JOINT LT WO EXAM: MR LOWER JOINT LT WO CLINICAL HISTORY: left medial meniscus, INTERNAL DERANGEMENT LT KNEE, M23.92. TECHNIQUE: Multiplanar multisequence MRI was performed. COMPARISON: CR XR KNEE LT 3V AP,LAT,NISH from 10/31/2022 FINDINGS: BONES: There is no fracture or contusion pattern. JOINTS: In the medial femoral tibial joint there is loss of the articular cartilage and osteophytes. Findings are consistent with osteoarthritis. Mild subchondral edema is seen. The articular cartila ge is otherwise well maintained. There is a small joint effusion. TENDONS: Extensor mechanism: Unremarkable. Medial retinaculum: Unremarkable. Lateral retinaculum: Unremarkable. Popliteus: Unremarkable. MUSCLES: Unremarkable. MENISCI: There is degeneration seen in the posterior horn of the medial meniscus. There is some sign al which does contact articular surface suspicious for tear. The lateral meniscus is unremarkable. SOFT TISSUES: Unremarkable. LIGAMENTS: Anterior Cruciate: Unremarkable. Posterior Cruciate: Unremarkable. Medial Collateral:There is a small amount of fluid seen around the MCL which may represent a sprain. Lateral Collateral: Unremarkable. OTHER: IMPRESSION: 1. Degenerative changes in the medial femoral tibial joint. 2. Small joint effusion. 3. Degeneration of the posterior horn of the medial meniscus with a question of a tear. 4. MCL sprain. DATA REPOSITORY:
== END ==
PROVIDERS: PCP Family Medicine; Visit Provider Family Medicine
DX: S83.411A Sprain of medial collateral ligament of right knee, initial encounter; X58.XXXA Exposure to other specified factors, initial encounter
CPT/HCPCS: 73721

== ENCOUNTER → 2023-10-24 12:46 | Outpatient (BNVA) | payer MEDICARE, SELFPAY ==
--- NOTE | 2023-11-11 14:32 | W.PFT ---
Date of service: 10/24/23 Time of Service: 11:54 Pulmonary Function Test Result Indications: Dyspnea Interpretation Spirometry: Normal FEV1/FVC but decreased FEV1 and FVC suggesting restriction. Impression Normal spirometry but decreased FEV1 and FVC suggesting restriction. If clinically indicated please obtain lung volumes for further clarification. Clinical Correlation therefore is recommended.
== END ==
PROVIDERS: PCP Family Medicine; Referring Provider Family Medicine; Visit Provider Physician Assistant Surgical
DX: J45.909 Unspecified asthma, uncomplicated (principal); E88.01 Alpha-1-antitrypsin deficiency
CPT/HCPCS: 00123; 99214

== ENCOUNTER → 2024-01-09 13:09 | Outpatient (BNVA) | payer MEDICARE, SELFPAY | PROVIDERS: PCP Family Medicine; Referring Provider Family Medicine; Visit Provider Student in an Organized Health Care Education/Training Program | DX: M23.92 Unspecified internal derangement of left knee (principal); M17.12 Unilateral primary osteoarthritis, left knee | CPT/HCPCS: 20610; 99213; J1010 ==

== ENCOUNTER → 2024-01-14 14:26 | Outpatient (BNVA) | payer MEDICARE, SELFPAY | PROVIDERS: PCP Family Medicine; Referring Provider Family Medicine; Visit Provider Podiatrist | DX: M76.822 Posterior tibial tendinitis, left leg (principal); M21.42 Flat foot [pes planus] (acquired), left foot; M79.672 Pain in left foot | CPT/HCPCS: 99213 ==

== ENCOUNTER 2024-02-19 03:22 | Outpatient (CLI) | payer MEDICARE, SELFPAY ==
[2024-02-19 09:35] LABS: ALT 29 U/L (14-59); AST 19 U/L (15-37); Albumin 3.7 g/dL (3.4-5.0); Alkaline Phosphatase 73 U/L (46-116); Anion Gap 10.4 mmol/L (3-11); BUN 28 mg/dL (7-18); Bilirubin, Total 0.63 mg/dL (0.2-1.0); CO2 24.6 mmol/L (21.0-32.0); CREATININE 0.9 mg/dL (0.55-1.02); Calcium 9.1 mg/dL (8.5-10.1); Chloride 110 mmol/L (98-107); Estimated GFR 66.67 (mL/min/1.73m2); Glucose 88 mg/dL (74-106); Potassium 3.9 mmol/L (3.5-5.1); Sodium 145 mmol/L (136-145); TSH (W/Ref FT4) 1.05 uIU/mL (0.36-3.74); Total Protein 7.1 g/dL (6.4-8.2)
[2024-02-19 09:49] LABS: Calculated LDL 132 mg/dL (<100); Cholesterol 247 mg/dL (<200); HDL Cholesterol 99 mg/dL (40-60); Triglyceride 82 mg/dL (<150)
== END 2024-02-19 03:23 | disposition home or self-care (01) ==
LOC: LBO 03:22
PROVIDERS: PCP Family Medicine; Visit Provider Family Medicine
DX: I10 Essential (primary) hypertension (principal); E03.9 Hypothyroidism, unspecified
CPT/HCPCS: 36415; 80053; 80061; 84443

== ENCOUNTER 2024-03-06 01:09 | Outpatient (CLI) | payer MEDICARE, SELFPAY ==
--- NOTE | 2024-03-06 07:15 | DI.MAMMO_ITS ---
Exam(s) MAMMO SCREENING EXAM: MAMMO SCREENING CLINICAL HISTORY: screening,z12.39 TECHNIQUE: Mammograms were interpreted according to the usual protocol including computer analysis w [employer] CAD system, tomosynthesis and C-view imaging. COMPARISON: 2014 through 2021 FINDINGS: The breasts are composed of mainly fatty density , Breast Density category A. No suspicious masses or suspicious microcalcifications are seen. No skin thickening or abnormal axillary lymph nodes are seen. There has been no significant change from prior exams. IMPRESSION: BI-RADS Category 1, Negative mammogram Yearly screening mammography is recommended. Breast Density - Category A, fatty density. A negative radiographic report should not delay biopsy if a dominant or clinically suspicious mass is present. Up to ten percent of cancers are not identified on mammography. A negative report may reinforce clinical impression. Adenosis and dense breasts may obscure an underlying neoplasm. False positive reports average 6 to 10%. Patient will receive a letter notifying them of these results.
--- NOTE | 2024-03-06 12:06 | DI.RAD_ITS ---
Exam(s) XR ANKLE RT COMPLETE XR ANKLE LT COMPLETE EXAM: XR ANKLE RT COMPLETE CLINICAL HISTORY: b/l ankle pain,m25.571,m25.572. TECHNIQUE: 2D digital imaging was performed. Three views of both ankles. COMPARISON: CR XR ANKLE LT COMPLETE from 03/06/2024 FINDINGS: BONES: No acute fracture is present. No bony destructive lesion is seen. The talar domes are intac t. Heel spurs present bilaterally. JOINTS: The ankle mortise is normally aligned. Mild narrowing of the medial tibial talar joint and mild periarticular spurring. SOFT TISSUE: Normal. IMPRESSION: Bilateral heel spurs. Mild degenerative changes of the tibiotalar joints. DATA REPOSITORY: RADIATION DOSE DELIVERED:
== END 2024-03-06 01:29 ==
LOC: DI 01:10
PROVIDERS: PCP Family Medicine; Visit Provider Family Medicine
DX: M77.31 Calcaneal spur, right foot (principal); M77.32 Calcaneal spur, left foot; Z12.31 Encounter for screening mammogram for malignant neoplasm of breast
CPT/HCPCS: 77063; 77067; 73610

== ENCOUNTER 2024-09-08 02:02 | Outpatient (CLI) | payer MEDICARE, SELFPAY ==
[2024-09-08 10:17] LABS: ALT 28 U/L (14-59); AST 22 U/L (15-37); Albumin 3.8 g/dL (3.4-5.0); Alkaline Phosphatase 85 U/L (46-116); Anion Gap 9.1 mmol/L (3-11); BUN 20 mg/dL (7-18); Bilirubin, Total 0.6 mg/dL (0.2-1.0); CO2 25.9 mmol/L (21.0-32.0); CREATININE 0.8 mg/dL (0.55-1.02); Calculated LDL 119 mg/dL (<100); Chloride 108 mmol/L (98-107); Cholesterol 236 mg/dL (<200); Estimated GFR 76.31 (mL/min/1.73m2); Glucose 89 mg/dL (74-106); HDL Cholesterol 107 mg/dL (>or=50); Potassium 4.2 mmol/L (3.5-5.1); Sodium 143 mmol/L (136-145); Total Protein 7.1 g/dL (6.4-8.2); Triglyceride 51 mg/dL (<150); Vitamin B12 1061 pg/mL (193-986); Vitamin D 25 Total 36 ng/mL (30-100)
== END 2024-09-08 02:03 | disposition home or self-care (01) ==
PROVIDERS: PCP Family Medicine; Visit Provider Family Medicine
DX: E55.9 Vitamin D deficiency, unspecified (principal); E53.8 Deficiency of other specified B group vitamins; I10 Essential (primary) hypertension
CPT/HCPCS: 36415; 80053; 80061; 82306; 82607

== ENCOUNTER → 2024-10-26 12:45 | Outpatient (BNVA) | payer MEDICARE, SELFPAY | PROVIDERS: PCP Family Medicine; Referring Provider Family Medicine; Visit Provider Physician Assistant Surgical | DX: J45.909 Unspecified asthma, uncomplicated (principal); E88.01 Alpha-1-antitrypsin deficiency | CPT/HCPCS: 99214 ==

== ENCOUNTER 2024-11-05 03:02 | Outpatient (CLI) | payer MEDICARE, SELFPAY ==
[2024-11-05] MEDS: Inhaler, Assist Device 1 EACH MC (10:18)
[2024-11-05] MEDS: Levalbuterol HFA 15 GM INH 4 PUFF IH (10:18)
--- NOTE | 2024-11-09 12:30 | W.PFT ---
Date of service: 11/05/24 Time of Service: 07:57 Pulmonary Function Test Result Indications: AAT deficiency Interpretation Spirometry: There is no airflow limitation. No significant bronchodilator response. Lung Volumes: Normal lung volumes Diffusion Capacity: Normal diffusion Airway Pressure: Normal airways resistance Impression Normal pulmonary function testing Note: When compared to 10/24/23, lung function is stable. Clinical Correlation therefore is recommended.
== END 2024-11-05 03:03 | disposition home or self-care (01) ==
LOC: RT 03:03
PROVIDERS: PCP Family Medicine; Visit Provider Student in an Organized Health Care Education/Training Program
DX: J45.909 Unspecified asthma, uncomplicated (principal); E88.01 Alpha-1-antitrypsin deficiency
CPT/HCPCS: 94060; 94726; 94729

== ENCOUNTER → 2025-01-15 10:17 | Outpatient (BNVA) | payer MEDICARE, SELFPAY | PROVIDERS: PCP Family Medicine; Referring Provider Family Medicine; Visit Provider Physician Assistant | DX: M23.92 Unspecified internal derangement of left knee (principal) | CPT/HCPCS: 20610; J1010 ==

== ENCOUNTER 2025-03-15 03:35 | Outpatient (CLI) | payer MEDICARE, SELFPAY ==
[2025-03-15 11:47] LABS: TSH (W/Ref FT4) 3.76 uIU/mL (0.36-3.74)
[2025-03-15 18:14] LABS: Hepatitis C Ab w Rflx HCV PCR Negative (Negative)
== END 2025-03-15 03:36 | disposition home or self-care (01) ==
LOC: LBO 03:35
PROVIDERS: PCP Family Medicine; Visit Provider Family Medicine
DX: Z11.59 Encounter for screening for other viral diseases (principal); E03.9 Hypothyroidism, unspecified
CPT/HCPCS: 36415; 86803; 84439; 84443

== ENCOUNTER → 2025-04-07 01:12 | Outpatient (CLI) | payer MEDICARE, SELFPAY ==
--- NOTE | 2025-04-07 13:30 | DI.US_ITS ---
APPROVED REPORT EXAM: Comprehensive 2D, Doppler, and color-flow Echocardiogram Patient Location: Out-Patient Slash Trimmer: Evy Phillips RDCS (AE) Indications: SOB Other Information Study Quality: Adequate Conclusion Normal left ventricular wall thickness and chamber size. Ejection fraction is 60%. Wall motion is normal Normal right ventricular size and function Both atria are normal in size There are no structural valvular abnormalities Trace to mild aortic regurgitation Mild mitral and tricuspid regurgitation Estimated right ventricular systolic pressure is 23 mmHg Borderline dilated ascending aorta Wall motion Left Ventricle The left ventricle is normal size. The left ventricular systolic function is normal. The left ventricular ejection fraction is within the normal range. There is normal left ventricular wall thickness. There is normal LV segmental wall motion. There is no ventricular septal defect visualized. LVEF is 60%. Right Ventricle The right ventricle is normal size. The right ventricular systolic function is normal. Atria The left atrium size is normal. The right atrium size is normal. Atrial septal aneurysm is present. The interatrial septum is intact with no evidence for an atrial septal defect. Aortic Valve The aortic valve is normal in structure. Aortic valve is trileaflet. There is no aortic valvular stenosis. Trace to mild aortic regurgitation. Mitral Valve The mitral valve is normal in structure. No evidence of mitral valve stenosis. Mild mitral regurgitation. Tricuspid Valve The tricuspid valve is normal in structure. There is no tricuspid valve stenosis. Mild tricuspid regurgitation. The RVSP is 22.7 mmHg. Pulmonic Valve The pulmonary valve is normal in structure. There is no pulmonic valvular stenosis. There is no pulmonic valvular regurgitation. Great Vessels The aortic root is normal in size. The ascending aorta is mildly dilated. Aortic arch is normal in caliber. IVC is normal in size and collapses >50% with inspiration. Pericardium There is no pericardial effusion. 2D Dimensions IVSD d PLAX 1.00 cm F: 0.6-1.0 Ao Root d 3.20 cm F: 2.7 - 3.3 LVPW d PLAX 1.02 cm F: 0.6 - 1.0 Ao Asc Diam d 3.40 cm F: 2.3 - 3.1 LVID d PLAX 4.40 cm F: 3.8 - 5.2 LVDs 3.01 cm F: 2.2 - 3.5 LV EF Teichholz 59.0 % FS 31.02 % LV EDV (Teich) 85.9 mL LV ESV (Teich) 35.3 mL Auto EF LV EDV A4C 84.8 mL LV EDV A2C 84.6 mL LV EDV BP 85.1 mL LV ESV A4C 36.1 mL LV ESV A2C 35.4 mL LV ESV BP 36.0 mL LVEF(%) A4C 57.4 % LVEF(%) A2C 58.1 % LVEF(%) BP 57.7 % LV SV A4C 48.7 ml LV SV A2C 49.1 ml LV SV BP 49.1 ml LV CO A4C 3.6 L/min LV CO A2C 3.4 L/min LV CO BP 3.5 L/min HR A4C 73.93 BPM HR A2C 68.19 BPM LV EDV Index (BP) LA Volume LA Length A4C 4.9 cm LA Length A2C 4.9 cm LA Area A4C s 18.18 cm2 LA Area A2C s 15.63 cm2 LA Vol A4C A-L 57.40 mL LA Vol A2C A-L 42.17 mL LA Vol Biplane A-L 49.4 mL LA Vol/BSA A4C A-L LA Vol/BSA A2C A-L LA Vol/BSA BP A-L 27.9 mL/m2 LA Vol A4C MOD 52.6 mL LA Vol A2C MOD 39.7 mL LA Vol BP MOD 45.6 mL RA Volume RA Area A4C 12.9 cm2 RA ESV A4C (A-L) 34.6mL RA Vol/BSA A4C A-L RA Length A4C 4.1 cm RA ESV A4C (MOD) 32.6mL LV Diastology MV E' medial 0.080 (>0.07 m/s) MV E Vmax 0.63 (0.4-1.3 m/s) MV E/E' MED 7.85 (<14) MV A Vmax 0.65 (0.4-1.3 m/s) MV E' lateral 0.102 (>0.1 m/s) E/A Ratio 1.0 MV E/E' LAT 6.20 (<14) MV E' Average 0.091 m/s MV E/E'(average) 6.93 Aortic Valve AoV Vmax 1.34 m/s LVOT Vmax 1.02 m/s AoV Peak Grad 39.4 mmHg LVOT Peak Grad 4.1 mmHg AoV Area (Vmax) 2.06 cm2 LVOT VTI 0.200 m AoV VTI 0.271 m LVOT Mean Grad 2.2 mmHg AoV Mean Aj. 0.86 m/s LVOT SV 54.23 mL AoV Mean Grad 3.4 mmHg LVOT Diam s 1.85 cm AoV Area (VTI) 2.00 cm2 AV Regurg Peak Gr. 7.13 mmHg Velocity Ratio 0.76 AR [place] 1.7m/sec2 AR DT 2530 msec AR PHT 734 msec AR Vmax 4.23 m/s Mitral Valve MV DT 206 (160-240 msec) MV Mean Grad 0.9 (<2mmHg) Pulmonary Valve PV Vmax 0.87 (0.5-1.5 m/s) RVOT Vmax 0.65 m/s PV Peak Grad 3.0 mmHg RVOT Peak Gr. 1.7 mmHg PV Mean Aj 0.58 m/s RVOT VTI 0.136 m PV Mean Grad 1.6 mmHg RVOT Mean Gr. 0.9 mmHg Tricuspid Valve RA Pressure 3.00 mmHg TR Vmax 2.22 m/s TR Peak Grad 19.6 mmHg RVSP (TR) 22.7 mmHg
== END ==
LOC: DI 01:14
PROVIDERS: PCP Family Medicine; Visit Provider Family Medicine
DX: R06.02 Shortness of breath (principal); I08.1 Rheumatic disorders of both mitral and tricuspid valves
CPT/HCPCS: 93306

== ENCOUNTER → 2025-04-15 00:27 | Outpatient (CLI) | payer MEDICARE, SELFPAY ==
--- NOTE | 2025-04-15 07:00 | DI.NM_ITS ---
APPROVED REPORT Exam: Pharmacologic Patient Location: Out-Patient Room/Bed: Stress Nurse: Paulette Driscoll RN Ordering Provider:JACEK MORRISSEY, Contact Number: [phone] BMI: 29.04 Baseline Rhythm: Sinus Rhythm Indications: exertional SOB Medical History Medical History: knee pain, arthritis, asthma, hearing loss, GERD, HLD, hypothyroid, Alpha 1 deficiency Cardiac Medications: symbicort, albuterol sulfate, levothyroxine, pantoprazole Allergies: NKA Cardiac Risk Factors: family hx, asthma Previous Cardiac Procedures: n/a Pretest Chest Pain Characteristics: No chest pain Exercise History: Indeterminate Physical Disabilities: L knee Lung Sounds: Clear to auscultation Heart Sounds: Regular Stress Test Details Test: Pharmacologic stress was paired with low level exercise. Reason for pharmacologic stress test: physical limitation. Nuclear Acquisition: Rest Tc-99m/Stress Tc-99m 1 day Rest Isotope: Tc-99m Sestamibi. Dose: 10.0 Date: 04/15/2025 Injection Time: 0850 Stress Isotope: Tc-99m Sestamibi. Dose: 30.0 Date: 04/15/2025 Injection Time: 1022 HR Resting HR Supine: 92 bpm Max Heart Rate (APMHR): 143 bpm Resting HR Standin bpm Target HR (85% APMHR): 122 bpm Max HR Achieved: 141 bpm % of APMHR: 99 Recovery HR: 105 bpm HR response to stress: Accelerated HR response to stress BP Resting BP Supine: 160/90 mmHg Resting BP Standin/90 mmHg Max BP: 180/100 mmHg Recovery BP: 138/80 mmHg BP response to stress: Normal blood pressure response to stress. ECG Resting ECG: Sinus Rhythm, 1st degree AV block Ectopy: n/a Stress ECG: Sinus Tachycardia ST Change: No significant ST segment changes noted Arrhythmia: None Recovery ECG: Sinus Tachycardia Recovery ST Change: No significant ST segment changes noted Recovery Arrhythmia: None Clinical Stress Symptoms: Dyspnea Angina Score: None Rate Pressure Product: [id number] Stress ECG Conclusion 1. Resting electrocardiogram was normal 2. Patient underwent testing using pharmacologic stress with regadenoson along with low-level exercise 3. Peak heart rate achieved was 99% of maximal predicted heart rate for age 4. The electrocardiographic portion of the test did not demonstrate any myocardial ischemia 5. There were no significant dysrhythmias 6. See MPI report Stress Test Summary STAGE HR BP SpO2 Symptoms NOTES Supine 92 160/90 97 Standing 96 150/90 1 min post Lexiscan injection 130 180/100 94 mild SOB 3 min post Lexiscan injection 128 190/98 96 6 min post Lexiscan injection 109 160/98 96 9 min post Lexiscan injection 105 138/80 98 Walking harjinder performed due to pt's chronic L knee pain. Pt c/o mild SOB during test. Pt had accelerated HR response and met target HR. All symptoms resolved by end of recovery. Pt left ambulatory in no acute distress. MPI Conclusion Myocardial perfusion is normal. There is no ischemia or evidence of prior infarction Ejection fraction is 60% with normal wall motion
[2025-04-15] MEDS: Regadenoson 0.4 MG/5 ML SYR IVP (10:22)
== END ==
LOC: DI 00:28
PROVIDERS: PCP Family Medicine; Visit Provider Family Medicine
DX: R06.02 Shortness of breath (principal)
CPT/HCPCS: 78452; 93016; 93018; 93017; J2785